=== PATIENT | female | born 1985 | race Caucasian/White ===

== ENCOUNTER 2023-09-12 16:36 | Inpatient (IN) | payer BC, MEDICAID ==
[~2023-09-12] VITALS: Ht 157.5 cm; Wt 62.7 kg
[2023-09-12 17:38] LABS: Basophils # (auto) 0 10 ^3/uL (0-0.2); Basophils % (auto) 0.4 % (0.0-2.0); Eosinophils # (auto) 0 10 ^3/uL (0-0.8); Eosinophils % (auto) 0.3 % (0.0-7.0); Hematocrit 42.4 % (36.0-46.0); Hemoglobin 14.4 g/dL (12.2-16.2); Lymphocytes # (auto) 0.8 10 ^3/uL (0.4-5.4); Mean Corpuscular Hemoglobin 32.4 pg (28.0-32.0); Mean Corpuscular Hgb Conc. 33.9 g/dL (32.0-36.0); Mean Corpuscular Volume 95.5 fL (80.0-100.0); Monocytes # (auto) 1.1 10 ^3/uL (0-1.3); Monocytes % (auto) 9.7 % (0.0-12.0); Neutrophils # (auto) 9.7 10 ^3/uL (1.6-8.6); Neutrophils % (auto) 82.6 % (37.0-80.0); Nucleated Red Blood Cells % 0.1 %; Red Blood Cells 4.43 10^6/uL (4.0-5.20); Red Cell Distribution Width 12.1 % (11.8-14.3); White Blood Cell 11.7 10^3/uL (4.4-10.8)
[2023-09-12 17:57] LABS: Alanine Aminotransferase 10 U/L (7-40); Albumin 4.4 g/dL (3.2-4.8); Alkaline Phosphatase 63 U/L (46-116); Anion Gap 6 (5-15); Aspartate Aminotransferase 14 U/L (13-40); BUN/Creatinine Ratio 9.5 (10.0-20.0); Bilirubin, Total 0.8 mg/dL (0.2-1.0); Blood Urea Nitrogen 7 mg/dL (9-23); Carbon Dioxide 27 mmol/L (20-30); Chloride 101 mmol/L (98-107); Glucose 105 mg/dL (74-106); Potassium 3.9 mmol/L (3.5-5.1); Sodium 134 mmol/L (136-145)
[2023-09-12 17:58] LABS: Total Protein 7.1 g/dL (5.7-8.2)
[2023-09-12 18:34] LABS: Urine Bacteria FEW /hpf (None Seen); Urine Blood 1+ /uL (Negative); Urine Clarity Turbid (Clear); Urine Color Light-Yellow (Yellow); Urine Protein, UAD TRACE (Negative); Urine Specific Gravity 1.015 (1.001-1.035); Urine Urobilinogen Normal (Negative); Urine WBC 60 /hpf (0 - 5)
[2023-09-12] MEDS: ACETAMINOPHEN 325 MG TAB PO ONE (19:28)
[2023-09-12] MEDS: SODIUM CHLORIDE 0.9% 1,500 ML IV ONE (20:00)
[2023-09-12] MEDS ORDERED: TEMAZEPAM 15 MG CAP PO PRN (20:30)
[2023-09-12] MEDS: cefTRIAXone 1GM/50ML D5W 50 ML IV ONE (20:40)
[2023-09-12 21:56] VITALS: PULSE 90; RESP 16; O2SAT 98
[2023-09-12] MEDS: HYDROcodone-ACET 5/325MG TAB PO PRN (22:58)
[2023-09-13] VITALS (8 sets, daily range): BP systolic 112–123; BP diastolic 60–76; PULSE 88–105; RESP 18–22; TEMP 97.6–101.5; O2SAT 92–98
[2023-09-13 07:53] LABS: Basophils # (auto) 0 10 ^3/uL (0-0.2); Basophils % (auto) 0.2 % (0.0-2.0); Eosinophils # (auto) 0.1 10 ^3/uL (0-0.8); Eosinophils % (auto) 0.5 % (0.0-7.0); Hematocrit 38.4 % (36.0-46.0); Hemoglobin 13.4 g/dL (12.2-16.2); Lymphocytes % (auto) 8.2 % (10.0-50.0); Mean Corpuscular Hemoglobin 33.6 pg (28.0-32.0); Mean Corpuscular Hgb Conc. 34.8 g/dL (32.0-36.0); Mean Corpuscular Volume 96.5 fL (80.0-100.0); Monocytes # (auto) 1.6 10 ^3/uL (0-1.3); Monocytes % (auto) 13.1 % (0.0-12.0); Neutrophils # (auto) 9.3 10 ^3/uL (1.6-8.6); Red Blood Cells 3.98 10^6/uL (4.0-5.20); Red Cell Distribution Width 12.1 % (11.8-14.3)
[2023-09-13 07:58] LABS: Chloride 107 mmol/L (98-107); Potassium 3.7 mmol/L (3.5-5.1); Sodium 137 mmol/L (136-145)
[2023-09-13 07:59] LABS: Anion Gap 5 (5-15); Calcium 8.3 mg/dL (8.5-10.1); Carbon Dioxide 25 mmol/L (20-30)
[2023-09-13 08:04] LABS: Glucose 85 mg/dL (74-106)
[2023-09-13 08:10] LABS: BUN/Creatinine Ratio 8.2 (10.0-20.0); Blood Urea Nitrogen < 5 mg/dL (9-23)
[2023-09-13] MEDS: cefTRIAXone 1GM/50ML D5W 50 ML IV SCH (09:18)
[2023-09-13] MEDS: SODIUM CHLORIDE 0.9% 1,000 ML IV SCH (09:45)
[2023-09-13] MEDS: DOCUSATE SOD 100 MG CAP PO SCH (11:17)
[2023-09-13] MEDS: MANNITOL FTV 25% 12.5 GM/50 ML 50 ML IV ONE (14:52)
[2023-09-13] MEDS: LACTULOSE 20Gm/30ML SOLN PO ONE (16:09)
[2023-09-13] MEDS: ACETAMINOPHEN 325 MG TAB PO PRN (16:10)
[2023-09-13] MEDS: BISACODYL 5 MG EC TAB PO ONE (16:10)
[2023-09-13 20:08] LABS: Amphetamine Screen, Urine Neg (NEGATIVE); Barbiturate Scree,Urine Neg (NEGATIVE); Benzodiazephine Screen, Urine Neg (NEGATIVE); Cocaine Screen, Urine Neg (NEGATIVE)
[2023-09-13 20:09] LABS: Cannabinoid Screen, Urine Neg (NEGATIVE); Opiate Scree,Urine Neg (NEGATIVE); Phencyclidine Screen, Urine Neg (NEGATIVE)
[2023-09-14] VITALS (7 sets, daily range): BP systolic 103–118; BP diastolic 63–74; PULSE 64–83; RESP 16–20; TEMP 97.6–98.4; O2SAT 95–100
[2023-09-14] MEDS: ONDANSETRON HCL 4 MG/2 ML VIAL IV PRN (01:54)
[2023-09-14 06:57] LABS: Albumin 3.8 g/dL (3.2-4.8); Alkaline Phosphatase 55 U/L (46-116); Anion Gap 8 (5-15); Aspartate Aminotransferase 10 U/L (13-40); Calcium 8.5 mg/dL (8.5-10.1); Carbon Dioxide 24 mmol/L (20-30); Chloride 105 mmol/L (98-107); Glucose 86 mg/dL (74-106); Potassium 3.6 mmol/L (3.5-5.1); Sodium 137 mmol/L (136-145)
[2023-09-14 06:58] LABS: Bilirubin, Total 0.7 mg/dL (0.2-1.0); Total Protein 6.2 g/dL (5.7-8.2)
[2023-09-14 07:02] LABS: Alanine Aminotransferase < 9 U/L (7-40); BUN/Creatinine Ratio 10.4 (10.0-20.0); Blood Urea Nitrogen < 5 mg/dL (9-23)
[2023-09-14 07:09] LABS: Basophils # (auto) 0 10 ^3/uL (0-0.2); Basophils % (auto) 0.2 % (0.0-2.0); Eosinophils # (auto) 0.1 10 ^3/uL (0-0.8); Eosinophils % (auto) 0.7 % (0.0-7.0); Hematocrit 37.5 % (36.0-46.0); Hemoglobin 12.9 g/dL (12.2-16.2); Lymphocytes # (auto) 1.4 10 ^3/uL (0.4-5.4); Lymphocytes % (auto) 11.8 % (10.0-50.0); Mean Corpuscular Hemoglobin 33.2 pg (28.0-32.0); Mean Corpuscular Hgb Conc. 34.5 g/dL (32.0-36.0); Mean Corpuscular Volume 96.1 fL (80.0-100.0); Monocytes # (auto) 1.3 10 ^3/uL (0-1.3); Monocytes % (auto) 11.4 % (0.0-12.0); Neutrophils # (auto) 8.9 10 ^3/uL (1.6-8.6); Neutrophils % (auto) 75.9 % (37.0-80.0); Red Cell Distribution Width 11.6 % (11.8-14.3); White Blood Cell 11.7 10^3/uL (4.4-10.8)
[2023-09-14] MEDS: ACETAMINOPHEN 325 MG TAB PO ONE (08:42)
[2023-09-14] MEDS: KETOROLAC TROMETH 30 MG/ML 1ML VIAL IV ONE (08:43)
[2023-09-14] MEDS ORDERED: GASTROGRAFIN 120 ML SOL ONE (11:02)
[2023-09-15 05:00] VITALS: BP 99/67; PULSE 70; RESP 20; TEMP 98; O2SAT 97
[2023-09-15 06:34] LABS: Basophils # (auto) 0 10 ^3/uL (0-0.2); Basophils % (auto) 0.3 % (0.0-2.0); Eosinophils # (auto) 0.2 10 ^3/uL (0-0.8); Eosinophils % (auto) 2.3 % (0.0-7.0); Hemoglobin 12.8 g/dL (12.2-16.2); Lymphocytes # (auto) 1.6 10 ^3/uL (0.4-5.4); Lymphocytes % (auto) 21.6 % (10.0-50.0); Mean Corpuscular Hemoglobin 33.1 pg (28.0-32.0); Mean Corpuscular Hgb Conc. 34.5 g/dL (32.0-36.0); Monocytes # (auto) 0.9 10 ^3/uL (0-1.3); Monocytes % (auto) 12.1 % (0.0-12.0); Neutrophils # (auto) 4.6 10 ^3/uL (1.6-8.6); Neutrophils % (auto) 63.7 % (37.0-80.0); Red Blood Cells 3.85 10^6/uL (4.0-5.20); Red Cell Distribution Width 11.8 % (11.8-14.3); White Blood Cell 7.3 10^3/uL (4.4-10.8)
[2023-09-15 06:46] LABS: Albumin 3.6 g/dL (3.2-4.8); Alkaline Phosphatase 47 U/L (46-116); Anion Gap 7 (5-15); Aspartate Aminotransferase < 8 U/L (13-40); Bilirubin, Total 0.4 mg/dL (0.2-1.0); Calcium 8.9 mg/dL (8.7-10.4); Carbon Dioxide 25 mmol/L (20-30); Chloride 108 mmol/L (98-107); Glucose 87 mg/dL (74-106); Potassium 3.8 mmol/L (3.5-5.1); Sodium 140 mmol/L (136-145); Total Protein 5.8 g/dL (5.7-8.2)
[2023-09-15 06:50] LABS: Alanine Aminotransferase < 9 U/L (7-40); BUN/Creatinine Ratio 9.8 (10.0-20.0); Blood Urea Nitrogen < 5 mg/dL (9-23)
[2023-09-15 08:00] VITALS: PULSE 89; RESP 20; O2SAT 98
[2023-09-15] MEDS ORDERED: NITR-52 PO (08:05)
[2023-09-15] MEDS ORDERED: CIPR500T4 PO (08:09)
[2023-09-15 09:00] VITALS: BP 100/51; PULSE 89; RESP 18; TEMP 98.4; O2SAT 98
[2023-09-15] MEDS: KETOROLAC TROMETH 30 MG/ML 1ML VIAL IV ONE (09:17)
[2023-09-15 10:46] VITALS: BP 100/51; PULSE 89; RESP 18; TEMP 36.9; O2SAT 98
== END 2023-09-15 12:15 | disposition home or self-care (01) | DRG 720 ==
LOC: ER 16:36 → CENTRAL 20:23 → OVERFLOW 20:23 → CENTRAL 23:43
PROVIDERS: ADMIT Internal Medicine; ATTEND Physician Assistant
DX: A41.9 Sepsis, unspecified organism (principal); F17.290 Nicotine dependence, other tobacco product, uncomplicated; K59.00 Constipation, unspecified; N39.0 Urinary tract infection, site not specified
CPT/HCPCS: 36415; 74018; 74176; 74250; 76775; 80048; 80053; 80307; 81001; 81025; 83605; 83690; 85025; 87040; 87086; 96365; G0378; J1885; J2405

== ENCOUNTER 2024-06-10 23:10 | Emergency (ER) | payer MEDICAID ==
[~2024-06-10] VITALS: Ht 157.5 cm; Wt 59.1 kg
[~2024-06-10 23:10] MED LIST: CIPR500T4 PO
[2024-06-10] MEDS: SODIUM CHLORIDE 0.9% 1,000 ML IV ONE (23:30)
--- NOTE | 2024-06-10 23:42 | ED.PDOC ---
History of Present Illness HPI Comments 38 y/o F, with a Hx of UTI's, presents with c/o generalized body rash with itchiness and throat tingling sensation, today. Patient endorses on developing a red rash across her body with itchiness and tingling sensation in her throat after taking Tirzepatide, this evening. She report no past medical history of relevance, such as known allergies. Patient denies having any shortness of breath, fever, chills, nausea, vomiting, or other associated symptoms or modifiers at this time. 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: No 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 History Family History Family History: Reviewed,noncontributory to illness Social History Smoker: Other (vape) Alcohol: Rarely Drugs: Denies Drug Use EENTM: reports: others (throat tingling sensation ) Integumetry: reports: rash (w/itchiness) All Other Systems: Reviewed and Negative (negative unless otherwise stated above or in HPI) Physical Exam General Appearance: No Apparent Distress, Normal HEENT: Normal ENT Inspection, Pharynx Normal, TMs Normal Neck: Full Range of Motion, Non-Tender, Normal, Normal Inspection Respiratory: Chest Non-Tender, Lungs Clear, No Accessory Muscle Use, No Respiratory Distress, Normal Breath Sounds Cardiovascular: No Edema, No JVD, No Murmur, No Gallop, Normal Peripheral Pulses, Regular Rate/Rhythm Breast Exam: Deferred Gastrointestinal: No Organomegaly, Non Tender, No Pulsatile Mass, Normal Bowel Sounds, Soft Genitalia: Deferred Pelvic: Deferred Rectal: Deferred Extremities: No calf tenderness, Normal capillary refill, Normal inspection, Normal range of motion, Non-tender, No pedal edema Musculoskeletal : Apperance: Normal Neurologic: Alert, conveyor mechanic II-XII nml as Tested, No Motor Deficits, Normal Affect, Normal Mood, No Sensory Deficits Cerebellar Function: Normal Reflexes: Normal Skin: Dry, Normal Color, Rash (diffuse urticaria), Warm Lymphatic: No Adenopathy Was a procedure done? Was a procedure done?: No Differential Dx Considerations may include: adverse allergic reaction to medication, rash X-Ray, Labs, Meds, VS Vital Signs Date Time Temp Pulse Resp B/P (MAP) Pulse Ox O2 Delivery O2 Flow Rate FiO2 06/11/24 02:00 78 17 115/66 (82) 94 06/10/24 23:59 91 19 131/86 (101) 99 06/10/24 23:26 97.5 89 20 131/86 (101) 99 Lab Test 06/10/24 23:26 Range/Units Urine Test Negative Negative Current Medications Medications (Trade) Dose Ordered Sig/Pilar Route Start Time Stop Time Status Last Admin Methylprednisolone Sodium Succinate (Solu Medrol) 125 mg ONCE ONCE IV 06/10/24 23:30 06/10/24 23:31 DC 06/11/24 00:01 Famotidine (Pepcid Injection) 20 mg ONCE ONCE IV 06/10/24 23:30 06/10/24 23:31 DC 06/11/24 00:01 Diphenhydramine HCl (Benadryl Injection) 50 mg ONCE ONCE IV 06/10/24 23:30 06/10/24 23:31 DC 06/11/24 00:01 Sodium Chloride 1,000 ml @ 1,000 mls/hr Q1H ONCE IV 06/10/24 23:30 06/11/24 00:29 DC 06/10/24 23:30 Time of 1ST Reevaluation: 23:50 Reevaluation 1ST: Unchanged Patient Education/Counseling: Diagnosis, Treatment Family Education/Counseling: No Family Present Additional Information I reviewed the following notes from patient's past medical encounters: ED p hysician document on 09/12/23 and hospital discharge summary report on 09/15/23 The following tests were ordered, and results were reviewed by me: test -urine, I discussed treatment and results with medical personnel Departure 1 Departure Time of Disposition: 03:02 (Patient with a allergic reaction it is now resolved. We will discharge patient home with outpatient follow up) Impression: Primary Impression: Allergic reaction Qualified Codes: T78.40XA - Allergy, unspecified, initial encounter Disposition: 01 HOME / SELF CARE / HOMELESS Condition: Stable Additional Instructions: You had an allergic reaction. You received medications in the ER. You were prescribed steroids and an epinephrine pain. Please use as directed. You should follow up with your regular doctor within one week to ensure you are doing better. You may benefit from an appointment with an [facility]. If your symptoms worsen, or you have any other concerns then please return to the ER. e-Prescriptions Prednisone (Prednisone) 20 Mg Tab 40 MG PO DAILY for 4 Days, #8 MG Prov: SHAWNEE LEON MD 06/11/24 Epinephrine (Anaphylaxis) (Auvi-Q) 0.1 Mg/0.1 Ml Inj 0.1 MG IJ O PRN for 1 Day, #1 INJ Prov: SHAWNEE LEON MD 06/11/24 Discharged With: Self Critical Care Note Critical Care Time?: No Stability Stability form required: No Heart Score Heart Score: Heart Score Response (Comments) Value History N/A 0 EKG N/A 0 Age N/A 0 Risk Factors N/A 0 Troponin N/A 0 Total 0 I personally scribed for SHAWNEE LEON MD ([email or web address]) on 06/10/24 at 23:42. Electronically submitted by Mitchel Ngo ([email or web address]). SHAWNEE LEON MD Jun 10, 2024 23:42
[2024-06-11] MEDS: diphenhdrAMINE HCL 50 MG/1 ML VL IV ONE (00:01)
[2024-06-11] MEDS: FAMOTIDINE (10MG/ML) 2ML VL IV ONE (00:01)
[2024-06-11] MEDS: methylPREDNISolone SOD SUCC 125 MG/2 ML VL IV ONE (00:01)
[2024-06-11 02:00] VITALS: BP 115/66; PULSE 78; RESP 17; O2SAT 94
[2024-06-11] MEDS ORDERED: EPIN0.1I11 IJ (03:06)
[2024-06-11] MEDS ORDERED: PRED20TA2 PO (03:06)
== END 2024-06-11 03:36 | disposition home or self-care (01) ==
LOC: ER 23:10
DX: T78.40XA Allergy, unspecified, initial encounter (principal); X58.XXXA Exposure to other specified factors, initial encounter
CPT/HCPCS: 81025; 96361; 96374; 96375; 99284; J1200; J2919; J3490; J7030